=== PATIENT | female | born 2000 | race Caucasian/White ===

== ENCOUNTER 2020-12-11 18:58 | Emergency (ER) | payer OTHER ==
[2020-12-11 20:46] LABS: BASOPHIL 0.3 % (0-2); EOSINOPHIL 1.1 % (0-5); HCT 38.1 % (37.0-47.0); HGB 12.2 g/dl (12.5-16.0); LYMPHOCYTE 36.3 % (15-48); MCH 24.9 pg (25.0-31.0); MCV 77.8 fL (78.0-100.0); MONOCYTE 6.6 % (0-12); NEUTROPHIL 55.4 % (41-80); NRBC 0; PLT 150 K/uL (150-400); RDW 15.6 % (11.5-14.0); WBC 3.5 K/uL (4.0-10.5)
[2020-12-11 21:01] LABS: ALBUMIN 3.9 g/dL (3.4-5.0); BILIRUBIN - TOTAL 0.8 mg/dL (0.2-1.0); BUN/CREAT RATIO (CALC) 11.1 RATIO; CREATININE 0.81 mg/dL (0.51-0.95); GLOBULIN (CALCULATION) 2.8 g/dL; POTASSIUM 3.6 mmol/L (3.5-5.1); TOTAL PROTEIN 6.7 g/dL (6.4-8.2)
[2020-12-11] MEDS ORDERED: ZOFRAN4 M1 PO (22:48)
== END 2020-12-11 23:17 | disposition home or self-care (01) ==
LOC: FER 18:58
PROVIDERS: Emergency Medicine
DX: U07.1 COVID-19 (principal); Z88.5 Allergy status to narcotic agent
CPT/HCPCS: 36415; 71045; 80053; 83690; 84484; 85025; 93005